=== PATIENT | female | born 1960 | race Hispanic/Latino ===

== ENCOUNTER → 2016-11-24 | Outpatient (CLI) | payer OTHER ==
[~2016-11-24] MED LIST: ASPIR-TRIN325 M1 PO; ENDOCET 5-3251 EACH PO; FLONASE16 G1 BOTH NARES; Flagyl PO; INDERAL40 MG PO; LISINOPRIL10 MG PO; LOPRESSOR50 MG PO; LORTAB 5-325 M1 EACH PO; Levaquin PO; Levothroid,Synthroid PO; METFORMIN HCL500 MG PO; METOPROLOL TART25 MG PO; MUCUS ER600 MG PO; Milk Of Magnesia,MOM PO; NAPROSYN500 MG PO; NOHOMEMEDS; ONDANSETRON ODT4 MG PO; PROPRANOLOL HCL10 MG PO; Percocet 5/325,Endoc PO; ROBITUSSIN NIG118 ML PO; SYNTHROID150 MCG PO; TESSALON PERLE100 MG PO; ZYRTEC10 M2 PO; [UNRECOGNIZED DRUG - OTHER] PO
== END | disposition home or self-care (01) ==
LOC: NUC 09:49
DX: M54.2 Cervicalgia (principal); G90.50 Complex regional pain syndrome I, unspecified
CPT/HCPCS: 78315; 78999; A9503

== ENCOUNTER 2017-03-07 01:04 | Emergency (ER) | payer OTHER ==
[~2017-03-07] VITALS: Ht 152.4 cm; Wt 68.9 kg
[2017-03-07 01:23] LABS: HEMATOCRIT 38.4 % (36.0-46.0); HEMOGLOBIN 12.9 G/DL (11.9-15.5); MCH 25.9 PG (29.0-34.0); MCHC 33.6 G/DL (30.0-36.0); PLATELET COUNT 179 K/uL (156-360); RBC DIS.WIDTH-CV 15.4 % (11.8-14.6); RBC DIS.WIDTH-SD 42.3 % (39-53); RED BLOOD COUNT 4.99 M/uL (3.80-5.20); WHITE BLOOD COUNT 4.7 K/uL (4.1-10.2)
[2017-03-07 01:34] LABS: CHLORIDE 103 mEq/L (99-109); POTASSIUM 3.7 mEq/L (3.7-5.4); SODIUM 142 mEq/L (136-147)
[2017-03-07 01:36] LABS: GLUCOSE 107 mg/dL (70-99)
[2017-03-07 01:40] LABS: CREATININE 0.7 mg/dL (0.6-1.3); GFR ESTIMATE (CALCULATED) > 59 mL/min/
[2017-03-07 01:41] LABS: UREA NITROGEN (BUN) 12 mg/dL (9-23)
[2017-03-07 01:45] LABS: TROP-I INTERPRETATION NEGATIVE; TROPONIN-I < 0.01 ng/mL (0.0-0.30)
[2017-03-07] MEDS ORDERED: ATIVAN1 MG PO (02:03)
[2017-03-07 03:18] VITALS: BP 135/97
== END 2017-03-07 03:52 | disposition home or self-care (01) ==
LOC: EME → EDBD 01:04 → EME 01:04
DX: R07.9 Chest pain, unspecified (principal); R03.0 Elevated blood-pressure reading, without diagnosis of hypertension; E11.9 Type 2 diabetes mellitus without complications; E03.9 Hypothyroidism, unspecified; F41.9 Anxiety disorder, unspecified; Z87.891 Personal history of nicotine dependence; Z79.84 Long term (current) use of oral hypoglycemic drugs; Z88.8 Allergy status to other drugs, medicaments and biological substances
CPT/HCPCS: 71046; 80048; 84484; 85027; 93005; 99281; 99285; J2060